=== PATIENT | male | born 1960 | race Caucasian/White ===

== ENCOUNTER 2018-05-31 07:32 | Outpatient (CLI) | payer OTHER ==
--- NOTE | 2018-05-31 08:49 | MRI ---
MRI CERVICAL SPINE WITHOUT IV CONTRAST: Date: 05/31/18 HISTORY: Osteoarthritis of spine with radiculopathy. Bilateral elbow pain for several years. FINDINGS: Limited visualized base of brain has a normal MRI appearance. Cervicomedullary junction is also dima l in appearance. Mild end plate degenerative changes are seen at the C6-7 level. Small focus of increased T1 and T2-we ighted signal intensity is seen in the C5 vertebral body, likely related to small hemangioma or focal area of fat. Normal signal intensity is otherwise demonstrated throughout the bone marrow. C2-3 Level: There is no disc bulge or disc herniation. Central spinal canal and neural foramina are patent. C3-4 Level: There is a mild disc osteophyte complex which does not result in significant narrowing of the central spinal canal. There is uncinate process hypertrophy seen on the left with mild facet degenerative ch anges resulting in mild to moderate left-sided neural foraminal narrowing. The right neural foramen i s patent. There is mild effacement of the ventral subarachnoid space. C4-5 Level: There is a mild broad based disc osteophyte complex with small central disc protrusion. This narrows the ventral subarachnoid space and does encroach on the central aspect of the spinal cord. Mild facet hypertrophic changes are present at this level. There is minimal narrowing of each neural foramen. C5-6 Level: There is mild loss of intervertebral disc height. There is a broad based disc osteophyte complex note d. There is resultant mild narrowing of the central spinal canal. Right neural foramen is patent, but there is mild left-sided neural foraminal narrowing. C6-7 Level: There is loss of intervertebral disc height with end plate degenerative changes at this level. There is a mild broad based disc osteophyte complex noted. This narrows the ventral subarachnoid space. The re is minimal right and mild left-sided neural foraminal narrowing. C7-T1 Level: There is no disc bulge or disc herniation. The central spinal canal and neural foramina are patent. IMPRESSION: Mild degenerative changes within the cervical spine. POS: RIO
== END 2018-05-31 07:33 | disposition home or self-care (01) ==
LOC: TBSIIMAG 07:32
PROVIDERS: ATTEND Family Medicine
DX: M47.22 Other spondylosis with radiculopathy, cervical region (principal)
CPT/HCPCS: 72141